=== PATIENT | male | born 1980 | race Caucasian/White ===

== ENCOUNTER 2025-04-25 09:33 | Outpatient (REF) | payer MEDICAID, SELFPAY ==
--- NOTE | ~2025-04-25 | XR_ITS ---
EXAMINATION: XR LUMBOSACRAL SPINE CLINICAL INFORMATION: pain and history of injury COMPARISON: None available. TECHNIQUE: Three views of the lumbosacral spine. FINDINGS: There are 5 nonrib-bearing lumbar segments. T12-L1: There is moderate disc space narrowing and small anterior osteophytes. There is mild wedging of the superior endplate of L1. L1-2: There is subtle retrolisthesis and mild disc space narrowing. L2-3: There is subtle retrolisthesis and mild disc space narrowing. L3-4: Unremarkable L4-5: Unremarkable L5-S1: Unremarkable. XR/XR lumbar spine 2-3V IMPRESSION: Mild degenerative disc disease. There is mild wedging of L1 vertebral body that is probably physiologic in nature, though an age indeterminate mild compression fracture is not ruled out. Correlate for focal pain in this region. If there is continued concern for fracture, consider MRI lumbar spine without contrast. Electronically signed by: Davey Sinclair MD 04/25/2025 11:14 AM EDT
--- NOTE | ~2025-04-25 | XR_ITS ---
EXAMINATION: XR CERVICAL SPINE CLINICAL INFORMATION: pain, history of surgery COMPARISON: CT on 02/21/2019 TECHNIQUE: AP, and lateral: Flexion, neutral, and extension view x-rays of the cortical spine. FINDINGS: Again seen are changes related to C5-6 corpectomy with posterior pedicle screws and rods within C3, C4, 5, C6, C7, and T1. Additionally, there is an anterior plate with screws placed into C4 and C7 vertebral body. There is a bone graft interposed between C4-C7. With flexion and extension, there is limited range of motion but no sign of instability. XR/XR cervical spine 5V IMPRESSION: Stable postoperative changes after C5-C6 corpectomy with interposed bone graft stabilized by posterior pedicle screws and rods and anterior plate and screws. Hardware appears intact. There is no sign of instability. There is limited range of motion during flexion and extension. Electronically signed by: Davey Sinclair MD 04/25/2025 11:18 AM EDT
[2025-04-25 12:07] LABS: Total Hemoglobin (HGBA1C) 3779.8455 umol/L
[2025-04-25 12:37] LABS: Alanine Aminotransferase 17 U/L (0-40); Albumin Level 4.7 g/dL (3.5-5.0); Alkaline Phosphatase 76 U/L (39-117); Anion Gap 12 (12-20); Aspartate Amino Transferase 34 U/L (5-37); Blood Urea Nitrogen 8 mg/dL (9-16); Calcium 9.3 mg/dL (8.4-10.2); Carbon Dioxide 28 mmol/L (22-29); Chloride 106 mmol/L (96-108); Cholesterol 156 mg/dL (<200); Estimated Glomerular Filt Rate > 60; HDL Cholesterol 55 mg/dL (>40); Potassium 4.7 mmol/L (3.3-5.1); Sodium 141 mmol/L (135-145); Total Protein 7.3 g/dL (6.5-8.0); Triglycerides 78 mg/dL (<150)
[2025-04-26 04:01] LABS: HBS Num1 > 1000.00 mIU/mL (0-7.99); HBc Num1 10.56 S/CO (0.00-0.79); ~Hepatitis B Surface Antibody REACTIVE (Nonreactive)
[2025-04-26 05:21] LABS: HBc Num2 10.67 S/CO; HBc Num3 11.08 S/CO
== END 2025-04-25 09:34 | disposition home or self-care (01) ==
LOC: HO.HHCL 09:33
PROVIDERS: PCP General Practice; Visit Provider General Practice
DX: B18.2 Chronic viral hepatitis C (principal); Z98.890 Other specified postprocedural states; G06.1 Intraspinal abscess and granuloma; E66.3 Overweight
CPT/HCPCS: 36415; 72050; 72100; 80053; 80061; 83036; 86704; 86706

== ENCOUNTER → 2025-04-25 09:55 | Outpatient (BNV) | payer MEDICAID, SELFPAY | PROVIDERS: PCP General Practice; Visit Provider Radiology Diagnostic Radiology | DX: M54.2 Cervicalgia (principal); M51.360 Other intervertebral disc degeneration, lumbar region with discogenic back pain only | CPT/HCPCS: 72050; 72100 ==